=== PATIENT | female | born 2000 | race African-American/Black ===

== ENCOUNTER 2019-01-25 10:29 | Inpatient (IN) ==
[2019-01-25] MEDS ORDERED: PEPCID IV PRN (12:07)
[2019-01-25] MEDS ORDERED: KEFZOL 1 GM/D5W 1 GM/50 ML IVPB IV PRN (12:07)
[2019-01-25] MEDS ORDERED: REGLAN PO ONE (12:07)
[2019-01-25] MEDS ORDERED: ZOFRAN IV PRN (12:07)
[2019-01-25] MEDS ORDERED: PEPCID PO ONE (12:07)
[2019-01-25] MEDS ORDERED: AMPICILLIN 2 GM in NS 100 ML IV ONE (12:07)
[2019-01-25] MEDS ORDERED: TYLENOL PO PRN (12:07)
[2019-01-25] MEDS ORDERED: STADOL IV PRN ×2 (12:07→19:23)
[2019-01-25] MEDS ORDERED: PEPCID PO PRN (12:07)
[2019-01-25] MEDS ORDERED: SODIUM CHLORIDE 0.9% INJ SCH (12:15)
[2019-01-25] MEDS ORDERED: LR 1,000 ML IV SCH (12:15)
[2019-01-25 12:42] LABS: URINE SOURCE VOIDED
--- NOTE | 2019-01-25 13:33 | PROVIDER PROGRESS NOTE ---
- Subjective 18 yo Bi-racial F, ROZ 02/03/2019 by U/S with a IUP @ 38 5/7 weeks. She presents to the L&D unit from the clinic with Dr. Hinkle secondary to contractions. She was monitored for 1 hour and her cervix changed from 2.5 cm to 3.5 centimeters. She is GBS+ and will receive IV antibiotics during her labor until delivery. OBHx: Previous , GBS+ PMHx: Denies PSHx: Lt. wrist injury & repair when a little girl SHx: Pt. denies ETOH, tobacco & illicit drug use FHx: Mother (49): CHTN, Ivory, CHTN; Father (51): ADHD, IDDM, Cardiac arrhythmia (wears defibrillator) Physical Exam Objective - Constitutional General Appearance: appears well, alert, no apparent distress - EYES Eyes: PERRL/EOMI - HEAD, EARS, NOSE, MOUTH & THROAT HENMT: normocephalic/atraumatic, moist mucous membranes, TMs normal, pharynx normal - RESPIRATORY Respiratory: lungs clear, normal breath sounds - CARDIOVASCULAR Cardiovascular: regular rate, rhythm - CHEST (BREASTS) Chest/Breast: deferred - GASTROINTESTINAL (ABDOMEN) Abdominal Exam: normal bowel sounds, non tender, soft, other (FHR: 140s, cat 1) - GENITOURINARY Female Genitalia/Pelvic Exam: external exam normal, other (CX: 2.5/80%/-1 to 3.5/80%/-1) Active Medications Generic Name Dose Route Start Last Admin Trade Name Freq PRN Reason Stop Dose Admin Acetaminophen 650 mg 01/25/19 12:07 Tylenol PO Q4-6H PRN PRN Headache Butorphanol Tartrate 2 mg 01/25/19 12:07 Stadol IV ONCE PRN PRN Pain Famotidine 40 mg 01/25/19 12:07 Pepcid PO Q12H PRN PRN GI upset or indigestion Famotidine 20 mg 01/25/19 12:07 Pepcid IV Q12H PRN PRN GI upset or indigestion Ampicillin Sodium 1 gm/ Sodium 50 mls @ 100 mls/hr 01/25/19 16:08 Chloride IV Q4H GARCÍA Cefazolin Sodium/Dextrose 1 gm in 50 mls @ 100 mls/hr 01/25/19 12:07 Kefzol 1 Gm/D5w IV ONCE PRN PRN SECTION Lactated Ringer's 1,000 mls @ 0 mls/hr 01/25/19 12:15 01/25/19 12:54 Lr IV 125 mls/hr .Q0M GARCÍA Administration As Directed Oxytocin/Sodium Chloride 30 unit in 500 mls @ 0 mls/hr 01/25/19 12:15 Pitocin 30 Units/Ns IV .Q0M GARCÍA As Directed Ondansetron HCl 4 mg 01/25/19 12:07 Zofran IV PRN PRN Nausea Sodium Chloride 5 - 10 ml 01/25/19 12:15 Sodium Chloride 0.9% INJ DIRECTED GARCÍA Laboratory Results - last 24 hr 01/25/19 10:55 Urine Source VOIDED - Assessment & Plan (1) 38 weeks gestation of Status: Acute Plan: 1. 38 5/7 weeks gestation in active labor 2. Anticipate delivery (2) GBS (group B Streptococcus carrier), +RV culture, currently Status: Acute Plan: 1. Begin IV Ampicillin and con't thru delivery (3) Active labor at term Status: Acute Plan: Anticipate delivery
[2019-01-25 13:38] LABS: BILIRUBIN URINE NEGATIVE (NEGATIVE); BLOOD URINE MODERATE (NEGATIVE); COLOR YELLOW; GLUCOSE URINE NEGATIVE (NEGATIVE); KETONE URINE NEGATIVE (NEGATIVE); LEUKOCYTES URINE LARGE (NEGATIVE); NITRITE URINE NEGATIVE (NEGATIVE); PROTEIN URINE TRACE mg/dL (NEGATIVE); SP GRAVITY URINE 1.007; TURBIDITY URINE HAZY (CLEAR); UROBILINOGEN URINE NORMAL (NORMAL)
[2019-01-25 13:59] LABS: BASO# 0.03 X1000 (0.0-0.2); BASO% 0.2 % (0.0-0.8); EOS# 0.04 X1000 (0.0-0.7); EOS% 0.3 % (0.0-10.0); HEMATOCRIT 40.4 % (37.0-47.0); HEMOGLOBIN 12.9 g/dL (12.0-16.0); IMM GRAN# 0.08 X1000 (0.0-0.04); IMM GRAN% 0.6 % (0.0-0.5); LYMPH# 2.47 X1000 (1.2-3.4); LYMPH% 17.9 % (20.5-51.1); MCH 27.3 PG (27-31); MCHC 31.9 g/dL (33-37); MCV 85.6 FL (81-99); MONO# 0.83 X1000 (0.11-0.59); MPV 11.8 FL (7.4-10.4); NEUT# 10.32 X1000 (1.4-6.5); PLT 279 X1000 (130-400); RBC 4.72 XMIL (4.2-5.4); RDW 14.6 % (11.5-14.5); WBC 13.77 X1000 (4.8-10.8)
[2019-01-25] MEDS ORDERED: AMPICILLIN 1 GM in NS 50 ML IV SCH (16:08)
[2019-01-25] MEDS: PITOCIN 30 UNITS/NS 30 UNIT/500 ML IV.SOLN IV SCH ×2 (17:25→22:31)
[2019-01-25] MEDS ORDERED: NAROPIN 0.2% INJ ONE (17:45)
[2019-01-25] MEDS ORDERED: FENTANYL-BUPIV-NS 500 MCG-0.125% 250 ML EPIDURAL SCH (18:00)
[2019-01-25 18:03] LABS: UR AMPHETAMINES QUAL NONE DETECTED (NONE DETECT); UR BARBITUATES QUAL NONE DETECTED (NONE DETECT); UR BENZODIAZEPIN QUAL NONE DETECTED (NONE DETECT); UR CANNABINOIDS QUAL NONE DETECTED (NONE DETECT); UR COCAINE QUAL NONE DETECTED (NONE DETECT); UR METHADONE QUAL NONE DETECTED (NONE DETECT); UR OPIATES QUAL NONE DETECTED (NONE DETECT); UR OXYCODONE QUAL NONE DETECTED (NONE DETECT); UR PCP QUAL NONE DETECTED (NONE DETECT)
--- NOTE | 2019-01-25 21:58 | OB/GYN PROGRESS NOTE ---
- Subjective Emileigh is experiencing ctx discomfort. Epidural attempts were made by the anesthesia provider; however, unsuccessful. Therefore, she has received IV Stadol. Her cervix was examined digitally and is 7/95%/-1/vtx. I anticipate a soon. OB Physical Exam Vital Signs - 8 hr 01/25/19 19:41 Temperature 97.6 F Pulse Rate 103 H Respiratory Rate 20 Blood Pressure 134/65 O2 Sat by Pulse Oximetry 98 - CONSTITUTIONAL General Appearance: moderate distress (Secondary to labor discomfort) - GENITOURINARY Cervica Dilation: See above Heart Rate: 140s, cat 1 Active Medications Generic Name Dose Route Start Last Admin Trade Name Freq PRN Reason Stop Dose Admin Acetaminophen 650 mg 01/25/19 12:07 Tylenol PO Q4-6H PRN PRN Headache Butorphanol Tartrate 2 mg 01/25/19 19:23 01/25/19 19:37 Stadol IV 2 mg Q2H PRN PRN Administration Pain Famotidine 40 mg 01/25/19 12:07 Pepcid PO Q12H PRN PRN GI upset or indigestion Famotidine 20 mg 01/25/19 12:07 Pepcid IV Q12H PRN PRN GI upset or indigestion Ampicillin Sodium 1 gm/ Sodium 50 mls @ 100 mls/hr 01/25/19 16:08 01/25/19 16:05 Chloride IV 100 mls/hr Q4H GARCÍA Administration Cefazolin Sodium/Dextrose 1 gm in 50 mls @ 100 mls/hr 01/25/19 12:07 Kefzol 1 Gm/D5w IV ONCE PRN PRN SECTION Lactated Ringer's 1,000 mls @ 0 mls/hr 01/25/19 12:15 01/25/19 12:54 Lr IV 125 mls/hr .Q0M GARCÍA Administration As Directed Oxytocin/Sodium Chloride 30 unit in 500 mls @ 0 mls/hr 01/25/19 12:15 01/25/19 17:25 Pitocin 30 Units/Ns IV 2 mls/hr .Q0M GARCÍA Administration As Directed Fentanyl/Bupivacaine/Sodium Chlor 250 mls @ 0 mls/hr 01/25/19 18:00 Odfaucjw-Jozqv-Bl 500 Mcg-0.125% EPIDURAL DIRECTED GARCÍA As Directed Ondansetron HCl 4 mg 01/25/19 12:07 Zofran IV PRN PRN Nausea Sodium Chloride 5 - 10 ml 01/25/19 12:15 Sodium Chloride 0.9% INJ DIRECTED GARCÍA Laboratory Results - last 24 hr 01/25/19 01/25/19 01/25/19 10:55 10:55 12:30 WBC RBC Hgb Hct MCV MCH MCHC RDW Std Deviation Plt Count MPV Immature Gran % (Auto) Neut % (Auto) Lymph % (Auto) [place] % (Auto) Eos % (Auto) Baso % (Auto) Immature Gran # (Auto) Neut # (Auto) Lymph # (Auto) [place] # (Auto) Eos # (Auto) Baso # (Auto) Urine Source VOIDED Urine Color YELLOW Urine Turbidity HAZY Urine pH 7.0 Ur Specific [place] 1.007 Urine Protein TRACE A Ur Glucose (Stick) NEGATIVE Ur Ketones (Stick) NEGATIVE Urine Blood MODERATE A Urine Nitrite NEGATIVE Urine Bilirubin NEGATIVE Urobilinogen Dipstick NORMAL Urine Leukocytes LARGE A Urine Opiates Screen NONE DETECTED Ur Oxycodone Screen NONE DETECTED Ur Methadone, Qual NONE DETECTED Ur Barbiturates Screen NONE DETECTED Ur Phencyclidine Scrn NONE DETECTED Ur Amphetamines Screen NONE DETECTED U Benzodiazepines Scrn NONE DETECTED Urine Cocaine Screen NONE DETECTED U Cannabinoids Screen NONE DETECTED RPR NON-REACTIVE 01/25/19 12:30 WBC 13.77 H RBC 4.72 Hgb 12.9 Hct 40.4 MCV 85.6 MCH 27.3 MCHC 31.9 L RDW Std Deviation 14.6 H Plt Count 279 MPV 11.8 H Immature Gran % (Auto) 0.6 H Neut % (Auto) 75.0 Lymph % (Auto) 17.9 L [place] % (Auto) 6.0 Eos % (Auto) 0.3 Baso % (Auto) 0.2 Immature Gran # (Auto) 0.08 H Neut # (Auto) 10.32 H Lymph # (Auto) 2.47 [place] # (Auto) 0.83 H Eos # (Auto) 0.04 Baso # (Auto) 0.03 Urine Source Urine Color Urine Turbidity Urine pH Ur Specific [place] Urine Protein Ur Glucose (Stick) Ur Ketones (Stick) Urine Blood Urine Nitrite Urine Bilirubin Urobilinogen Dipstick Urine Leukocytes Urine Opiates Screen Ur Oxycodone Screen Ur Methadone, Qual Ur Barbiturates Screen Ur Phencyclidine Scrn Ur Amphetamines Screen U Benzodiazepines Scrn Urine Cocaine Screen U Cannabinoids Screen RPR OB Assessment & Plan (1) 38 weeks gestation of Status: Chronic Plan: IUP @ 38 5/7 weeks gestation (2) GBS (group B Streptococcus carrier), +RV culture, currently Status: Chronic Plan: Receiving IV Ampicillin (3) Active labor at term Status: Acute Plan: Anticipate a
[2019-01-25] MEDS ORDERED: M-M-R II VACCINE SUBQ ONE (22:59)
[2019-01-25] MEDS ORDERED: AMBIEN PO PRN (22:59)
[2019-01-25] MEDS ORDERED: ATARAX PO PRN (22:59)
[2019-01-25] MEDS ORDERED: PITOCIN IM PRN (22:59)
[2019-01-25] MEDS ORDERED: BENADRYL IV PRN (22:59)
[2019-01-25] MEDS ORDERED: BENADRYL PO PRN (22:59)
[2019-01-25] MEDS ORDERED: NORCO-5 PO PRN (22:59)
[2019-01-25] MEDS ORDERED: CYTOTEC PO PRN (22:59)
[2019-01-25] MEDS ORDERED: MINERAL OIL PO PRN (22:59)
[2019-01-25] MEDS ORDERED: HYDROXYZINE IM PRN (22:59)
[2019-01-25] MEDS ORDERED: XYLOCAINE-MPF 1% INJ PRN (22:59)
[2019-01-25] MEDS ORDERED: PITOCIN 20 UNITS/NS 20 UNITS/1,000 ML IV.SOLN IV SCH (23:00)
[2019-01-25] MEDS: PERI MEDS (DERMOPLAST/NUPERCAINAL/TUCKS) MISC PRN (23:45)
[2019-01-25] MEDS: MOTRIN PO PRN (23:46)
[2019-01-25] MEDS: NORCO-10 PO PRN (23:46)
--- NOTE | 2019-01-26 03:17 | OB/GYN PROGRESS NOTE ---
- Subjective DELIVERY NOTE Triny is a 18 yo Bi-racial F, now , who presented to the L&D unit in early labor @ 38 5/7 weeks gestation. Her cervix changed from 2.5 centimeters to 3.5 centimeters. She has a +GBS culture; therefore, IV Ampicillin was begun for treatment. heart tones were noted to be category one. Her membranes were ruptured with a bloody return @ 20:57 hours after her 2nd dose of IV Ampicillin was hung. Her cervix progressed to 7/95%/-1/vertex. She progressed to 10 centimeters and had to be calmed-down by staff and family due to her uncooperation with pushing due to her labor discomfort. When she calmed down and listened to instructions, she underwent a of a viable female in the ABBY position over 3-2nd degree right labia minora lacerations @ 21:25 hours. No nuchal cord was identified and she was bulb suctioned after delivery due to a forceful push at delivery. The neonates scores are 9/10 and her weight is 5#9 ounces. The right labial lacerations were infiltrated with 1% Lidocaine and repaired with 3-0 Vicryl suture. The mother and are in stable condition. The parents have named her Jong Sanders. OB Physical Exam Vital Signs - 8 hr 01/25/19 19:41 01/26/19 00:15 Temperature 97.6 F 97.1 F L Pulse Rate 103 H 73 Respiratory Rate 20 18 Blood Pressure 134/65 119/77 O2 Sat by Pulse Oximetry 98 98 - CONSTITUTIONAL General Appearance: appears well, alert, mild distress (Vulvovaginal discomfort) - EYES Eyes: other (sclera clear) - GENITOURINARY Female Genitalia/Pelvic Exam: other (External exam identiofies a Rt labial laceration repaired with 3-0 Vicryl suture. Uterus is fiorm to palpation. Mild flow of lochia.) - MUSCULOSKELETAL Extremity: no pedal edema, no calf tenderness Active Medications Generic Name Dose Route Start Last Admin Trade Name Freq PRN Reason Stop Dose Admin Acetaminophen 650 mg 01/25/19 12:07 Tylenol PO Q4-6H PRN PRN Headache Hydrocodone Bitart/Acetaminophen 1 each 01/25/19 22:59 01/25/19 23:46 [place]-10 PO 1 each Q3-4H PRN PRN Administration Pain (7-10 on Pain Scale) Hydrocodone Bitart/Acetaminophen 1 each 01/25/19 22:59 [place]-5 PO Q3-4H PRN PRN Pain (1-6 on Pain Scale) Benzocaine 1 each 01/25/19 22:59 01/25/19 23:45 Gianna Meds (Dermoplast/Nupercainal/Tucks) MISC 1 appful 3-4XDAY PRN PRN Administration episiotomy/hemorrhoids Butorphanol Tartrate 2 mg 01/25/19 19:23 01/25/19 19:37 Stadol IV 2 mg Q2H PRN PRN Administration Pain Diphenhydramine HCl 12.5 mg 01/25/19 22:59 Benadryl IV Q4H PRN PRN Itching Diphenhydramine HCl 25 mg 01/25/19 22:59 Benadryl PO Q4H PRN PRN Itching Famotidine 40 mg 01/25/19 12:07 Pepcid PO Q12H PRN PRN GI upset or indigestion Famotidine 20 mg 01/25/19 12:07 Pepcid IV Q12H PRN PRN GI upset or indigestion Hydroxyzine HCl 50 mg 01/25/19 22:59 Atarax PO Q3-4H PRN PRN Nausea Hydroxyzine HCl 50 mg 01/25/19 22:59 Hydroxyzine IM Q3-4H PRN PRN Nausea Lactated Ringer's 1,000 mls @ 0 mls/hr 01/25/19 12:15 01/25/19 12:54 Lr IV 125 mls/hr .Q0M GARCÍA Administration As Directed Oxytocin/Sodium Chloride 30 unit in 500 mls @ 0 mls/hr 01/25/19 12:15 01/25/19 22:31 Pitocin 30 Units/Ns IV 125 mls/hr .Q0M GARCÍA Administration As Directed Fentanyl/Bupivacaine/Sodium Chlor 250 mls @ 0 mls/hr 01/25/19 18:00 Jzfnkzaf-Szeoc-Bd 500 Mcg-0.125% EPIDURAL DIRECTED GARCÍA As Directed Oxytocin/Sodium Chloride 20 units in 1,000 mls @ 0 mls/hr 01/25/19 23:00 Pitocin 20 Units/Ns IV .Q0M GARCÍA As Directed Ibuprofen 800 mg 01/25/19 22:59 01/25/19 23:46 Motrin PO 800 mg Q8H PRN PRN Administration cramping Lidocaine HCl 30 ml 01/25/19 22:59 01/25/19 21:30 Xylocaine-Mpf 1% INJ 30 ml PRN PRN Administration Perineal repair Mineral Oil 30 ml 01/25/19 22:59 Mineral Oil PO PRN PRN Perineal massage Misoprostol 800 microgm 01/25/19 22:59 Cytotec PO PRN PRN Severe bleeding Oxytocin 20 unit 01/25/19 22:59 Pitocin IM PRN PRN Severe bleeding Senna/Docusate Sodium 1 each 01/26/19 21:00 Pericolace PO QHS GARCÍA Sodium Chloride 5 - 10 ml 01/25/19 12:15 Sodium Chloride 0.9% INJ DIRECTED GARCÍA Zolpidem Tartrate 10 mg 01/25/19 22:59 Ambien PO HS PRN PRN Sleep Laboratory Results - last 24 hr 01/25/19 01/25/19 01/25/19 10:55 10:55 12:30 WBC RBC Hgb Hct MCV MCH MCHC RDW Std Deviation Plt Count MPV Immature Gran % (Auto) Neut % (Auto) Lymph % (Auto) [place] % (Auto) Eos % (Auto) Baso % (Auto) Immature Gran # (Auto) Neut # (Auto) Lymph # (Auto) [place] # (Auto) Eos # (Auto) Baso # (Auto) Urine Source VOIDED Urine Color YELLOW Urine Turbidity HAZY Urine pH 7.0 Ur Specific [place] 1.007 Urine Protein TRACE A Ur Glucose (Stick) NEGATIVE Ur Ketones (Stick) NEGATIVE Urine Blood MODERATE A Urine Nitrite NEGATIVE Urine Bilirubin NEGATIVE Urobilinogen Dipstick NORMAL Urine Leukocytes LARGE A Urine Opiates Screen NONE DETECTED Ur Oxycodone Screen NONE DETECTED Ur Methadone, Qual NONE DETECTED Ur Barbiturates Screen NONE DETECTED Ur Phencyclidine Scrn NONE DETECTED Ur Amphetamines Screen NONE DETECTED U Benzodiazepines Scrn NONE DETECTED Urine Cocaine Screen NONE DETECTED U Cannabinoids Screen NONE DETECTED RPR NON-REACTIVE 01/25/19 12:30 WBC 13.77 H RBC 4.72 Hgb 12.9 Hct 40.4 MCV 85.6 MCH 27.3 MCHC 31.9 L RDW Std Deviation 14.6 H Plt Count 279 MPV 11.8 H Immature Gran % (Auto) 0.6 H Neut % (Auto) 75.0 Lymph % (Auto) 17.9 L [place] % (Auto) 6.0 Eos % (Auto) 0.3 Baso % (Auto) 0.2 Immature Gran # (Auto) 0.08 H Neut # (Auto) 10.32 H Lymph # (Auto) 2.47 [place] # (Auto) 0.83 H Eos # (Auto) 0.04 Baso # (Auto) 0.03 Urine Source Urine Color Urine Turbidity Urine pH Ur Specific [place] Urine Protein Ur Glucose (Stick) Ur Ketones (Stick) Urine Blood Urine Nitrite Urine Bilirubin Urobilinogen Dipstick Urine Leukocytes Urine Opiates Screen Ur Oxycodone Screen Ur Methadone, Qual Ur Barbiturates Screen Ur Phencyclidine Scrn Ur Amphetamines Screen U Benzodiazepines Scrn Urine Cocaine Screen U Cannabinoids Screen RPR OB Assessment & Plan (1) 38 weeks gestation of Status: Resolved Plan: Delivered (2) GBS (group B Streptococcus carrier), +RV culture, currently Status: Chronic Plan: s/p IV Amopicillin x 2 doses (3) (normal spontaneous vaginal delivery) Status: Resolved Plan: of a viable female
[2019-01-26 06:05] LABS: BASO# 0.02 X1000 (0.0-0.2); BASO% 0.1 % (0.0-0.8); EOS# 0.05 X1000 (0.0-0.7); EOS% 0.3 % (0.0-10.0); HEMATOCRIT 34.6 % (37.0-47.0); IMM GRAN# 0.05 X1000 (0.0-0.04); IMM GRAN% 0.3 % (0.0-0.5); LYMPH# 1.79 X1000 (1.2-3.4); MCH 27.5 PG (27-31); MCHC 31.8 g/dL (33-37); MCV 86.5 FL (81-99); MONO# 1.14 X1000 (0.11-0.59); MPV 11.1 FL (7.4-10.4); NEUT# 13.25 X1000 (1.4-6.5); NEUT% 81.3 % (42.2-75.2); PLT 228 X1000 (130-400); RDW 14.4 % (11.5-14.5)
[2019-01-26] MEDS: ZOLOFT PO SCH (08:51)
[2019-01-26] MEDS: NORCO-10 PO PRN ×3 (08:52→20:16)
[2019-01-26] MEDS: MOTRIN PO PRN ×2 (08:52→16:44)
[2019-01-26] MEDS ORDERED: PERICOLACE PO SCH (21:00)
[2019-01-27] MEDS: NORCO-10 PO PRN ×2 (01:48→07:06)
[2019-01-27] MEDS: MOTRIN PO PRN ×2 (01:48→10:43)
--- NOTE | 2019-01-27 06:39 | OB/GYN PROGRESS NOTE ---
- Subjective Pt seen and examined. Currently w/o complaints. Ambulating and urinating without difficulty. Tolerating regular diet. Denies N/V/fever/chills. Reports h/o anxiety and desires to continue Zoloft. Admits to bottle feeding. Requesting Depo Provera for contraception OB Physical Exam Vital Signs - 8 hr 01/27/19 04:03 Temperature 97.2 F L Pulse Rate 98 H Respiratory Rate 18 Blood Pressure 112/56 - CONSTITUTIONAL General Appearance: appears well, alert, no apparent distress - RESPIRATORY Respiratory: lungs clear, normal breath sounds - CARDIOVASCULAR Cardiovascular: regular rate, rhythm - GASTROINTESTINAL (ABDOMEN) Abdominal Exam: non tender, soft - GENITOURINARY Female Genitalia/Pelvic Exam: external exam normal (decreased lochia) - MUSCULOSKELETAL Extremity: no pedal edema, no calf tenderness - PSYCHIATRIC Psych/Mental Status: normal mood/affect, oriented x 3 Active Medications Generic Name Dose Route Start Last Admin Trade Name Freq PRN Reason Stop Dose Admin Acetaminophen 650 mg 01/25/19 12:07 Tylenol PO Q4-6H PRN PRN Headache Hydrocodone Bitart/Acetaminophen 1 each 01/25/19 22:59 01/27/19 01:48 [place]-10 PO 1 each Q3-4H PRN PRN Administration Pain (7-10 on Pain Scale) Hydrocodone Bitart/Acetaminophen 1 each 01/25/19 22:59 01/26/19 16:44 [place]-5 PO 1 each Q3-4H PRN PRN Administration Pain (1-6 on Pain Scale) Benzocaine 1 each 01/25/19 22:59 01/25/19 23:45 Gianna Meds (Dermoplast/Nupercainal/Tucks) MISC 1 appful 3-4XDAY PRN PRN Administration episiotomy/hemorrhoids Butorphanol Tartrate 2 mg 01/25/19 19:23 01/25/19 19:37 Stadol IV 2 mg Q2H PRN PRN Administration Pain Diphenhydramine HCl 12.5 mg 01/25/19 22:59 Benadryl IV Q4H PRN PRN Itching Diphenhydramine HCl 25 mg 01/25/19 22:59 Benadryl PO Q4H PRN PRN Itching Famotidine 40 mg 01/25/19 12:07 Pepcid PO Q12H PRN PRN GI upset or indigestion Famotidine 20 mg 01/25/19 12:07 Pepcid IV Q12H PRN PRN GI upset or indigestion Hydroxyzine HCl 50 mg 01/25/19 22:59 01/26/19 16:44 Atarax PO 50 mg Q3-4H PRN PRN Administration Nausea Hydroxyzine HCl 50 mg 01/25/19 22:59 Hydroxyzine IM Q3-4H PRN PRN Nausea Lactated Ringer's 1,000 mls @ 0 mls/hr 01/25/19 12:15 01/25/19 12:54 Lr IV 125 mls/hr .Q0M GARCÍA Administration As Directed Oxytocin/Sodium Chloride 30 unit in 500 mls @ 0 mls/hr 01/25/19 12:15 01/25/19 22:31 Pitocin 30 Units/Ns IV 125 mls/hr .Q0M GARCÍA Administration As Directed Fentanyl/Bupivacaine/Sodium Chlor 250 mls @ 0 mls/hr 01/25/19 18:00 Ncbmjxww-Rmdps-Uu 500 Mcg-0.125% EPIDURAL DIRECTED GARCÍA As Directed Oxytocin/Sodium Chloride 20 units in 1,000 mls @ 0 mls/hr 01/25/19 23:00 Pitocin 20 Units/Ns IV .Q0M GARCÍA As Directed Ibuprofen 800 mg 01/25/19 22:59 01/27/19 01:48 Motrin PO 800 mg Q8H PRN PRN Administration cramping Lidocaine HCl 30 ml 01/25/19 22:59 01/25/19 21:30 Xylocaine-Mpf 1% INJ 30 ml PRN PRN Administration Perineal repair Mineral Oil 30 ml 01/25/19 22:59 Mineral Oil PO PRN PRN Perineal massage Misoprostol 800 microgm 01/25/19 22:59 Cytotec PO PRN PRN Severe bleeding Oxytocin 20 unit 01/25/19 22:59 Pitocin IM PRN PRN Severe bleeding Senna/Docusate Sodium 1 each 01/26/19 21:00 01/26/19 20:16 Pericolace PO 1 each QHS GARCÍA Administration Sertraline HCl 25 mg 01/26/19 09:00 01/26/19 08:51 Zoloft PO 25 mg QAM GARCÍA Administration Sodium Chloride 5 - 10 ml 01/25/19 12:15 Sodium Chloride 0.9% INJ DIRECTED GARCÍA Zolpidem Tartrate 10 mg 01/25/19 22:59 Ambien PO HS PRN PRN Sleep OB Assessment & Plan (1) (normal spontaneous vaginal delivery) Status: Resolved Plan: 18yo PPD#2 s/p -con't routine PP care -Increased risk of PP depression, will re-start Zoloft for anxiety -Discussed contraceptive options, risks and benefits, plan for Depo injection -Advised no coitus x 6 weeks -Plan for d/c home -f/u with Dr. Hinkle in 6 weeks
[2019-01-27] MEDS ORDERED: DEPO-PROVERA IM ONE (06:40)
[2019-01-27 06:56] VITALS: BP 119/69
[2019-01-27] MEDS ORDERED: BOOSTRIX VACCINE IM ONE (07:41)
[2019-01-27] MEDS: ZOLOFT PO SCH (08:43)
[2019-01-27] MEDS: PERI MEDS (DERMOPLAST/NUPERCAINAL/TUCKS) MISC PRN (08:44)
== END 2019-01-27 13:43 | disposition home or self-care (01) | DRG 807 ==
LOC: OPLD 10:29 → LD 10:32
PROVIDERS: ADMIT Obstetrics & Gynecology; ATTEND Obstetrics & Gynecology